=== PATIENT | female | born 1935 | race African-American/Black ===

== ENCOUNTER 2023-06-28 14:49 | Inpatient (IN) | payer MEDICARE, SELFPAY ==
[2023-06-28 15:16] LABS: #Eosinphils 0.2 thou/uL (0.0-0.7); #Monocytes 0.5 thou/uL (0.11-0.59); #Neutrophils 3.1 thou/uL (1.40-6.50); %Basophils 0.7 % (0.0-1.0); %Eosinophils 3.4 % (0.0-10.0); %Lymphocytes 30.9 % (21.0-51.0); %Monocytes 9.5 % (0.0-10.0); %Neutrophils 55.1 % (42.0-75.0); Hematocrit 33.7 % (36.0-47.0); Hemoglobin 10.9 g/dL (12.0-16.0); Mean Corpuscular HGB CONC 32.3 g/dL (32.0-36.0); Mean Corpuscular Hemoglobin 33.7 pg (27.0-31.0); Mean Corpuscular Volume 104.3 fl (78.0-98.0); Mean Platelet Volume 9.9 fL (7.4-10.4); Platelet Count 143 10x3/uL (130-400); RBC Distribution Width 11.9 % (11.5-14.5); Red Blood Cell (RBC) Count 3.23 mill/uL (4.20-5.40); White Blood Cell (WBC) Count 5.6 10x3/uL (4.8-10.8)
[2023-06-28] MEDS ORDERED: Rocuronium Bromide 10 MG/ML (10ML VIAL) ONE (15:16)
[2023-06-28] MEDS ORDERED: Tenecteplase 50 MG ONE (15:16)
[2023-06-28 15:36] LABS: ALT (SGPT) Less than 7 U/L (8-55); AST (SGOT) 12 U/L (5-34); Albumin 3.7 g/dL (3.4-4.8); Alkaline Phosphatase 44 U/L (40-110); Anion Gap 14 mmol/L (10-20); BUN (Urea Nitrogen) 14 mg/dL (9.8-20.1); Bilirubin, Total 0.3 mg/dL (0.2-1.2); Calc. Creatinine Clearance 0 mL/min (70-130); Carbon Dioxide 21 mmol/L (23-31); Chloride 107 mmol/L (98-107); Estimated GFR 77; Globulin 1.8 g/dL (2.4-3.5); Glucose 182 mg/dL (83-110); Potassium 3.9 mmol/L (3.5-5.1); Protein, Total 5.5 g/dL (5.8-8.1); Sodium 138 mmol/L (136-145)
[2023-06-28 15:40] LABS: Troponin I 0.019 ng/mL (< 0.028)
[2023-06-28 15:41] LABS: INR-International Normal Ratio 1.1; PTT 30.9 sec (22.9-36.1); Prothrombin Time 14.2 sec (12.0-14.7)
[2023-06-28] MEDS ORDERED: Heparin 10,000 UNITS/ 10 ML VIAL ONE (15:44)
[2023-06-28] MEDS ORDERED: Lidocaine 1% (PF) 30 ML VIAL ONE (15:44)
[2023-06-28] MEDS ORDERED: Propofol 1,000 MG/100 ML VIAL IV ONE (15:47)
[2023-06-28] MEDS ORDERED: fentaNYL PF 100 MCG/2 ML SYRINGE ONE (15:48)
[2023-06-28] MEDS ORDERED: Phenylephrine 10 MG/ML VIAL ONE (15:48)
[2023-06-28] MEDS ORDERED: Ketamine 50 MG/ML (10ML VIAL) ONE (15:48)
[2023-06-28] MEDS ORDERED: Iopamidol-370 76% 500 ML MDV (1 ML CHARGE) ONE (15:57)
[2023-06-28 16:04] LABS: Actual Bicarbonate (HCO3a) 21.3 mEq/L (22-28); Analyzer IN Cardio ER; Base Excess (BEa) -0.6 mEq/L (-2.0 to +3.0); CO2 Tension 27.6 mmHg (35.0-45.0); Calcium, Ionized (arterial) 1.16 mmol/L (1.12-1.30); Carboxyhemoglobin (COHb) 0.1 gm% (0.0-3.0); Hematocrit-ABG 37 % (36.0-47.0); Hemoglobin (Hb) 12.6 g/dL (12.0-16.0); O2 Tension (PaO2), arterial 506.7 mmHg (> 60.0); pH, Arterial 7.506 (7.35-7.45)
[2023-06-28 16:07] LABS: Puncture Site Right Radial
[2023-06-28] MEDS ORDERED: PROPOFOL 200 MG/20 ML VIAL ONE (16:19)
[2023-06-28] MEDS ORDERED: Esmolol 100 MG/10 ML VIAL ONE (16:19)
[2023-06-28] MEDS ORDERED: niCARdipine 25 MG in Sodium Chloride 0.9% 250 ML 250 ML IVPB PRN (17:05)
[2023-06-28] MEDS ORDERED: hydrALAZINE 20 MG/ML VIAL SLOW IVP PRN (17:05)
[2023-06-28] MEDS ORDERED: Communication Order-Pharmacy FS SCH (17:05)
[2023-06-28] MEDS ORDERED: Mag-Al 1200 mg/1200 mg/30 ML UDCUP PO PRN (17:05)
[2023-06-28] MEDS ORDERED: Lorazepam 2 MG/ML VIAL SLOW IVP PRN (18:30)
[2023-06-28] MEDS ORDERED: Fentanyl BOLUS 250 ML IVPB PRN (18:30)
[2023-06-28] MEDS ORDERED: Fentanyl CADD 100 ML IV SCH (18:30)
[2023-06-28] MEDS ORDERED: Propofol BOLUS 1,000 MG/100 ML VIAL IV PRN (18:30)
[2023-06-28] MEDS ORDERED: DISCONTINUE PREVIOUS NARCOTIC PAIN MEDICATIONS AND BENZODIAZEPINES FS SCH (18:30)
[2023-06-28] MEDS ORDERED: Electrolyte Replacement Protocol 1 EACH FS SCH (20:15)
[2023-06-28] MEDS ORDERED: Dextrose 50% Abboject 50 ML SYRINGE SLOW IVP PRN (20:27)
[2023-06-28] MEDS ORDERED: Glucagon 1 MG/ML KIT IM PRN (20:27)
[2023-06-28] MEDS ORDERED: Dextrose 5% in Water 1,000 ML IV PRN (20:27)
[2023-06-28] MEDS: Atorvastatin Calcium 40 MG TAB PO SCH ×2 (21:46→21:50)
[2023-06-28] MEDS: Sodium Chloride 0.9% 1,000 ML IV SCH (21:47)
[2023-06-28] MEDS ORDERED: Cyanocobalamin 1000 MCG/ML VIAL IM SCH (23:45)
[2023-06-29] MEDS: Morphine 2 MG/ML VIAL SLOW IVP PRN (01:52)
[2023-06-29] MEDS: Labetalol HCl 100 MG/20 ML VIAL SLOW IVP PRN ×2 (01:54→06:00)
[2023-06-29] MEDS: Propofol 1,000 MG/100 ML VIAL IV PRN ×2 (01:54→06:00)
[2023-06-29 05:00] LABS: #Eosinphils 0.1 thou/uL (0.0-0.7); #Monocytes 0.6 thou/uL (0.11-0.59); #Neutrophils 6.6 thou/uL (1.40-6.50); %Basophils 0.4 % (0.0-1.0); %Lymphocytes 12.8 % (21.0-51.0); %Monocytes 7.6 % (0.0-10.0); %Neutrophils 77.8 % (42.0-75.0); Hematocrit 36.4 % (36.0-47.0); Hemoglobin 12.4 g/dL (12.0-16.0); Mean Corpuscular HGB CONC 34.1 g/dL (32.0-36.0); Mean Corpuscular Hemoglobin 33.7 pg (27.0-31.0); Mean Platelet Volume 9.6 fL (7.4-10.4); Platelet Count 153 10x3/uL (130-400); RBC Distribution Width 11.6 % (11.5-14.5); Red Blood Cell (RBC) Count 3.68 mill/uL (4.20-5.40); White Blood Cell (WBC) Count 8.4 10x3/uL (4.8-10.8)
[2023-06-29 05:02] LABS: Mean Corpuscular Volume 98.9 fl (78.0-98.0)
[2023-06-29 05:27] LABS: Anion Gap 14 mmol/L (10-20); BUN (Urea Nitrogen) 10 mg/dL (9.8-20.1); Calc. Creatinine Clearance 70 mL/min (70-130); Carbon Dioxide 19 mmol/L (23-31); Cardiac Risk 2.6 (Less than 4.5); Chloride 110 mmol/L (98-107); Cholesterol 102 mg/dl (< 200 Desired); Estimated GFR 84; Glucose 169 mg/dL (83-110); HDL Cholesterol 40 mg/dL (>60 Neg Risk); LDL Cholesterol, Calculated 42 mg/dL; Magnesium 1.3 mg/dL (1.6-2.6); Potassium 3.2 mmol/L (3.5-5.1); Sodium 140 mmol/L (136-145); Triglycerides 101 mg/dL (Less than 150)
[2023-06-29] MEDS: Sodium Chloride 0.9% 1,000 ML IV SCH ×2 (05:59→09:00)
[2023-06-29] MEDS ORDERED: Magnesium Sulfate In Water 4 GM in Premix Bag 1 BAG IVPB SCH (06:30)
[2023-06-29 07:28] LABS: Actual Bicarbonate (HCO3a) 19.6 mEq/L (22-28); Base Excess (BEa) -2.2 mEq/L (-2.0 to +3.0); CO2 Tension 25.9 mmHg (35.0-45.0); Calcium, Ionized (arterial) 1.12 mmol/L (1.12-1.30); Carboxyhemoglobin (COHb) 0.2 gm% (0.0-3.0); Hematocrit-ABG 38 % (36.0-47.0); Hemoglobin (Hb) 12.9 g/dL (12.0-16.0); O2 Tension (PaO2), arterial 172.9 mmHg (> 60.0); Potassium - ABG Lab 3.05 mmol/L (3.70-5.30); pH, Arterial 7.496 (7.35-7.45)
[2023-06-29 07:29] LABS: ALV-art Gradient 79.925 mmHg (0-20); Puncture Site Arterial Line
[2023-06-29] MEDS ORDERED: NOREPINEPHRINE 8 MG/250 ML-D5W 250 ML ONE (07:56)
[2023-06-29] MEDS ORDERED: Folic Acid 5 MG/ML MDV SC SCH (09:00)
[2023-06-29] MEDS: Potassium Chloride 20 MEQ in Premix Bag 1 BAG IVPB SCH ×2 (10:25→12:21)
[2023-06-29] MEDS ORDERED: Iopamidol 370 76% 100 ML VIAL ONE (10:39)
[2023-06-29] MEDS ORDERED: Dexmedetomidine 400 MCG, Admixture Fee 1 EACH in Sodium Chloride 0.9% 96 ML IVPB SCH (11:00)
[2023-06-29] MEDS ORDERED: Famotidine/PF 20 mg/2ml Vial SLOW IVP SCH (11:00)
[2023-06-29] MEDS ORDERED: NOREPINEPHRINE 8 MG/250 ML-D5W 250 ML IVPB SCH (11:00)
[2023-06-29 11:07] LABS: Phosphorus 2.9 mg/dL (2.3-4.7)
[2023-06-29] MEDS: Famotidine/PF 20 mg/2ml Vial SLOW IVP SCH ×3 (12:14→20:50)
[2023-06-29] MEDS: Scopolamine 1.5 mg/72 hour Patch TD SCH (12:14)
[2023-06-29] MEDS: Folic Acid 0.4 MG in Syringe 0 ML SC SCH ×3 (12:24→20:51)
[2023-06-29 16:46] LABS: Potassium 3.7 mmol/L (3.5-5.1)
[2023-06-29] MEDS: Atorvastatin Calcium 40 MG TAB PO SCH (20:50)
[2023-06-29] MEDS: HumaLOG 300 UNITS/3 ML VIAL SC PRN (23:05)
[2023-06-30] MEDS ORDERED: Sodium Chloride 0.9% 500 ML IV SCH (02:30)
[2023-06-30] MEDS: Sodium Chloride 0.9% 1,000 ML IV SCH ×3 (03:53→16:34)
[2023-06-30 05:18] LABS: Hematocrit 38.1 % (36.0-47.0); Hemoglobin 12.1 g/dL (12.0-16.0); Mean Corpuscular HGB CONC 31.8 g/dL (32.0-36.0); Mean Corpuscular Hemoglobin 33.3 pg (27.0-31.0); Mean Platelet Volume 10.3 fL (7.4-10.4); Platelet Count 145 10x3/uL (130-400); RBC Distribution Width 12.3 % (11.5-14.5); Red Blood Cell (RBC) Count 3.63 mill/uL (4.20-5.40); White Blood Cell (WBC) Count 12.4 10x3/uL (4.8-10.8)
[2023-06-30 05:41] LABS: ALT (SGPT) 7 U/L (8-55); AST (SGOT) 14 U/L (5-34); Albumin 3.4 g/dL (3.4-4.8); Alkaline Phosphatase 48 U/L (40-110); Anion Gap 15 mmol/L (10-20); BUN (Urea Nitrogen) 10 mg/dL (9.8-20.1); Bilirubin, Total 0.6 mg/dL (0.2-1.2); Calc. Creatinine Clearance 63 mL/min (70-130); Calcium 8.7 mg/dL (7.8-10.44); Carbon Dioxide 19 mmol/L (23-31); Chloride 109 mmol/L (98-107); Estimated GFR 79; Globulin 2.6 g/dL (2.4-3.5); Glucose 221 mg/dL (83-110); Magnesium 2.1 mg/dL (1.6-2.6); Potassium 4.4 mmol/L (3.5-5.1); Sodium 139 mmol/L (136-145)
[2023-06-30] MEDS: HumaLOG 300 UNITS/3 ML VIAL SC PRN ×4 (06:37→21:38)
[2023-06-30] MEDS: Famotidine/PF 20 mg/2ml Vial SLOW IVP SCH ×2 (08:37→21:32)
[2023-06-30] MEDS ORDERED: Aspirin 300 MG Suppository PR SCH (09:00)
[2023-06-30] MEDS ORDERED: Aspirin 325 mg Enteric Coated Tablet PO SCH (09:00)
[2023-06-30] MEDS ORDERED: Dextrose 5% in Water 1,000 ML IV SCH (09:15)
[2023-06-30] MEDS ORDERED: Sodium Bicarbonate 150 MEQ in Dextrose 5% in Water 1,000 ML IV SCH (09:30)
[2023-06-30] MEDS: Insulin Glargine 30 UNITS/0.3 ML VIAL SC SCH (09:59)
[2023-06-30] MEDS: Acetaminophen 325 MG TAB PO PRN (13:58)
[2023-06-30] MEDS: Amiodarone 450 MG in Dextrose 5% in Water 250 ML IVPB SCH ×2 (15:20→23:21)
[2023-06-30] MEDS ORDERED: Latanoprost 0.005% Ophth Soln 2.5 ml Bottle EA EYE SCH (21:00)
[2023-06-30] MEDS ORDERED: DorzolamidE/Timolol 2%/0.5% Ophth Soln 10 ml Bottle EA EYE SCH (21:00)
[2023-06-30] MEDS: levETIRAcetam 500 MG/5 ML VIAL SLOW IVP SCH (21:32)
[2023-06-30] MEDS: Folic Acid 0.4 MG in Syringe 0 ML SC SCH (21:33)
[2023-06-30] MEDS: Latanoprost 0.005% Ophth Soln 2.5 ml Bottle EA EYE SCH (21:34)
[2023-06-30] MEDS: DorzolamidE/Timolol 2%/0.5% Ophth Soln 10 ml Bottle EA EYE SCH (21:34)
[2023-06-30] MEDS: Atorvastatin Calcium 40 MG TAB PO SCH (21:34)
[2023-07-01 04:04] LABS: Hematocrit 37.7 % (36.0-47.0); Hemoglobin 12.2 g/dL (12.0-16.0); Mean Corpuscular HGB CONC 32.4 g/dL (32.0-36.0); Mean Corpuscular Hemoglobin 32.9 pg (27.0-31.0); Mean Platelet Volume 11.2 fL (7.4-10.4); RBC Distribution Width 12.3 % (11.5-14.5); Red Blood Cell (RBC) Count 3.71 mill/uL (4.20-5.40); White Blood Cell (WBC) Count 12.8 10x3/uL (4.8-10.8)
[2023-07-01 04:21] LABS: Mean Corpuscular Volume 101.6 fl (78.0-98.0); Platelet Count 121 10x3/uL (130-400)
[2023-07-01 04:26] LABS: Anion Gap 15 mmol/L (10-20); BUN (Urea Nitrogen) 12 mg/dL (9.8-20.1); Calc. Creatinine Clearance 68 mL/min (70-130); Calcium 8.5 mg/dL (7.8-10.44); Carbon Dioxide 21 mmol/L (23-31); Chloride 107 mmol/L (98-107); Estimated GFR 84; Glucose 220 mg/dL (83-110); Potassium 3.5 mmol/L (3.5-5.1); Sodium 139 mmol/L (136-145)
[2023-07-01] MEDS: Sodium Chloride 0.9% 1,000 ML IV SCH ×2 (05:34→20:09)
[2023-07-01] MEDS: HumaLOG 300 UNITS/3 ML VIAL SC PRN ×3 (05:34→17:09)
[2023-07-01] MEDS: Acetaminophen 325 MG TAB PO PRN (08:44)
[2023-07-01] MEDS: Insulin Glargine 30 UNITS/0.3 ML VIAL SC SCH ×2 (08:44→20:08)
[2023-07-01] MEDS: levETIRAcetam 500 MG/5 ML VIAL SLOW IVP SCH ×2 (08:44→20:08)
[2023-07-01] MEDS: Famotidine/PF 20 mg/2ml Vial SLOW IVP SCH ×2 (08:44→20:08)
[2023-07-01] MEDS: DorzolamidE/Timolol 2%/0.5% Ophth Soln 10 ml Bottle EA EYE SCH ×2 (08:45→20:10)
[2023-07-01] MEDS: Potassium Chloride 20 MEQ in Premix Bag 1 BAG IVPB SCH ×2 (09:21→11:49)
[2023-07-01] MEDS: Amiodarone 450 MG in Dextrose 5% in Water 250 ML IVPB SCH (12:45)
[2023-07-01] MEDS ORDERED: FLU VACC QS2023(65UP)/MF59C/PF 60 MCG/0.5 ML SYRINGE IM ONE (15:00)
[2023-07-01] MEDS: Atorvastatin Calcium 40 MG TAB PO SCH (20:07)
[2023-07-01] MEDS: Morphine 2 MG/ML VIAL SLOW IVP PRN (20:08)
[2023-07-01] MEDS: Latanoprost 0.005% Ophth Soln 2.5 ml Bottle EA EYE SCH (20:10)
[2023-07-01] MEDS ORDERED: Vancomycin 1.5 GRAM/300 ML BAG 1.5 GM in Premix Bag 1 BAG IVPB SCH (20:30)
[2023-07-01] MEDS: Cefepime 1 GM in Sodium Chloride 0.9% 100 ML IVPB SCH (20:48)
[2023-07-01] MEDS: Folic Acid 0.4 MG in Syringe 0 ML SC SCH (20:50)
[2023-07-01] MEDS ORDERED: Vancomycin 1 GM in Premix Bag 1 BAG IVPB SCH (21:00)
[2023-07-02] MEDS: Morphine 2 MG/ML VIAL SLOW IVP PRN ×2 (00:09→03:39)
[2023-07-02] MEDS: Amiodarone 450 MG in Dextrose 5% in Water 250 ML IVPB SCH ×2 (03:31→18:53)
[2023-07-02 06:32] LABS: Lactic Acid 3.1 mmol/L (0.5-2.2)
[2023-07-02 06:43] LABS: BUN (Urea Nitrogen) 13 mg/dL (9.8-20.1); Calc. Creatinine Clearance 75 mL/min (70-130); Carbon Dioxide 17 mmol/L (23-31); Chloride 109 mmol/L (98-107); Estimated GFR 85; Glucose 159 mg/dL (83-110); Potassium 4.3 mmol/L (3.5-5.1); Sodium 139 mmol/L (136-145)
[2023-07-02] MEDS: HumaLOG 300 UNITS/3 ML VIAL SC PRN ×4 (06:44→21:10)
[2023-07-02 07:17] LABS: Anion Gap 17 mmol/L (10-20)
[2023-07-02] MEDS: Acetaminophen 650 MG/20.3 ML UDCUP PER TUBE PRN ×2 (08:04→20:55)
[2023-07-02] MEDS: DorzolamidE/Timolol 2%/0.5% Ophth Soln 10 ml Bottle EA EYE SCH ×2 (08:14→21:13)
[2023-07-02] MEDS: levETIRAcetam 500 MG/5 ML VIAL SLOW IVP SCH ×2 (08:15→21:15)
[2023-07-02] MEDS: Famotidine/PF 20 mg/2ml Vial SLOW IVP SCH ×2 (08:18→21:15)
[2023-07-02] MEDS: Cefepime 1 GM in Sodium Chloride 0.9% 100 ML IVPB SCH ×2 (08:20→21:20)
[2023-07-02 08:33] LABS: Hematocrit 40.2 % (36.0-47.0); Hemoglobin 12.9 g/dL (12.0-16.0); Mean Corpuscular HGB CONC 32.1 g/dL (32.0-36.0); Mean Corpuscular Hemoglobin 32.8 pg (27.0-31.0); Mean Corpuscular Volume 102.3 fl (78.0-98.0); Mean Platelet Volume 11.8 fL (7.4-10.4); Platelet Count 98 10x3/uL (130-400); RBC Distribution Width 12.1 % (11.5-14.5); Red Blood Cell (RBC) Count 3.93 mill/uL (4.20-5.40); White Blood Cell (WBC) Count 6.5 10x3/uL (4.8-10.8)
[2023-07-02] MEDS: Sodium Chloride 0.9% 1,000 ML IV SCH (08:54)
[2023-07-02] MEDS: Insulin Glargine 30 UNITS/0.3 ML VIAL SC SCH (08:55)
[2023-07-02 09:06] LABS: Base Excess (BEa) -0.2 mEq/L (-2.0 to +3.0); Calcium, Ionized (arterial) 1.17 mmol/L (1.12-1.30); Carboxyhemoglobin (COHb) 0.6 gm% (0.0-3.0); Hematocrit-ABG 37 % (36.0-47.0); Hemoglobin (Hb) 12.5 g/dL (12.0-16.0); O2 Tension (PaO2), arterial 73.1 mmHg (> 60.0); Potassium - ABG Lab 3.42 mmol/L (3.70-5.30); pH, Arterial 7.461 (7.35-7.45)
[2023-07-02 09:09] LABS: Puncture Site RRA
[2023-07-02] MEDS ORDERED: Sodium Chloride 0.9% 500 ML IV SCH (09:15)
[2023-07-02] MEDS ORDERED: Ipratropium/Albuterol 3 ML NEB NEB PRN (09:25)
[2023-07-02] MEDS ORDERED: Sodium Bicarbonate 150 MEQ in Dextrose 5% in Water 1,000 ML IV SCH (10:00)
[2023-07-02 10:37] LABS: Platelet Count 112 10x3/uL (130-400)
[2023-07-02 10:59] LABS: Fibrinogen 672 mg/dL (253-463)
[2023-07-02 11:00] LABS: INR-International Normal Ratio 1.3; Prothrombin Time 16.6 sec (12.0-14.7)
[2023-07-02] MEDS: Scopolamine 1.5 mg/72 hour Patch TD SCH (11:00)
[2023-07-02] MEDS: Vancomycin HCl 750 MG in Sodium Chloride 0.9% 250 ML 250 ML IVPB SCH ×2 (11:03→22:46)
[2023-07-02 11:07] LABS: D-Dimer Test 9.95 *mcg/mL (0.27-0.43)
[2023-07-02] MEDS: Budesonide 0.5 MG/2 ML NEB NEB SCH (18:32)
[2023-07-02] MEDS: Atorvastatin Calcium 40 MG TAB PO SCH (20:50)
[2023-07-02] MEDS ORDERED: Insulin Glargine 30 UNITS/0.3 ML VIAL SC SCH (21:00)
[2023-07-02] MEDS: Folic Acid 0.4 MG in Syringe 0 ML SC SCH (21:16)
[2023-07-02] MEDS: Latanoprost 0.005% Ophth Soln 2.5 ml Bottle EA EYE SCH (21:18)
[2023-07-03] MEDS ORDERED: Sodium Chloride 0.9% 1,000 ML IV SCH (01:00)
[2023-07-03] MEDS: HumaLOG 300 UNITS/3 ML VIAL SC PRN ×4 (03:33→20:42)
[2023-07-03 05:02] LABS: Hemoglobin 10.7 g/dL (12.0-16.0); Mean Corpuscular HGB CONC 32.4 g/dL (32.0-36.0); Mean Corpuscular Volume 101.9 fl (78.0-98.0); Mean Platelet Volume 11.8 fL (7.4-10.4); Platelet Count 120 10x3/uL (130-400); RBC Distribution Width 12.1 % (11.5-14.5); Red Blood Cell (RBC) Count 3.24 mill/uL (4.20-5.40); White Blood Cell (WBC) Count 9.4 10x3/uL (4.8-10.8)
[2023-07-03 05:27] LABS: ALT (SGPT) 7 U/L (8-55); AST (SGOT) 14 U/L (5-34); Albumin 2.5 g/dL (3.4-4.8); Alkaline Phosphatase 53 U/L (40-110); Anion Gap 12 mmol/L (10-20); BUN (Urea Nitrogen) 22 mg/dL (9.8-20.1); Bilirubin, Total 0.5 mg/dL (0.2-1.2); Calc. Creatinine Clearance 66 mL/min (70-130); Calcium 8.5 mg/dL (7.8-10.44); Carbon Dioxide 25 mmol/L (23-31); Chloride 105 mmol/L (98-107); Estimated GFR 77; Globulin 2.6 g/dL (2.4-3.5); Glucose 274 mg/dL (83-110); Magnesium 1.8 mg/dL (1.6-2.6); Potassium 3.5 mmol/L (3.5-5.1); Protein, Total 5.1 g/dL (5.8-8.1); Sodium 138 mmol/L (136-145)
[2023-07-03 05:29] LABS: Phosphorus 1.5 mg/dL (2.3-4.7)
[2023-07-03 05:42] LABS: Delete Auto Diff?? YES; Manual Diff?? YES
[2023-07-03] MEDS ORDERED: Magnesium 2 GM/50 ML(in water) 2 GM in Premix Bag 1 BAG IVPB SCH (06:15)
[2023-07-03] MEDS ORDERED: Potassium Phosphate 22 MMOL in Sodium Chloride 0.9% 250 ML 250 ML IVPB SCH (06:15)
[2023-07-03] MEDS: Budesonide 0.5 MG/2 ML NEB NEB SCH ×2 (06:46→18:37)
[2023-07-03 07:13] LABS: Anisocytosis SLIGHT = 6-15 cells HPF (0-5); Band 37 % (5-11); CellaVision Operator ID LAB.JMM; Eosinophils 1 % (0-10); Lymphocytes 10 % (21-51); Macrocytosis SLIGHT = 6-15 cells HPF (0-5); Metamyelocyte 2 % (0-0); Monocytes 9 % (0-10); Neutrophil 39 % (42-75); Platelet Adequacy Comment Platelets Decreased; Polychromasia SLIGHT = 2-3 cells HPF (0-2); Reactive Lymphocytes 1 % (0-10); Smudge Cells 7.5 %; Total Cell Count 107
[2023-07-03] MEDS: levETIRAcetam 500 MG/5 ML VIAL SLOW IVP SCH ×2 (08:48→20:39)
[2023-07-03] MEDS: Famotidine/PF 20 mg/2ml Vial SLOW IVP SCH ×2 (08:48→20:39)
[2023-07-03] MEDS: Cefepime 1 GM in Sodium Chloride 0.9% 100 ML IVPB SCH (08:49)
[2023-07-03] MEDS: DorzolamidE/Timolol 2%/0.5% Ophth Soln 10 ml Bottle EA EYE SCH ×2 (08:52→20:46)
[2023-07-03] MEDS ORDERED: Piperacillin/Tazobactam 3.375 GM in Sodium Chloride 0.9% 100 ML IVPB SCH ×2 (11:00→12:00)
[2023-07-03 11:37] LABS: Vancomycin, Trough 10.6 ug/mL
[2023-07-03] MEDS: Amiodarone 450 MG in Dextrose 5% in Water 250 ML IVPB SCH (12:11)
[2023-07-03] MEDS ORDERED: Polyethylene Glycol 3350 17 GM Packet PER TUBE PRN (12:26)
[2023-07-03] MEDS ORDERED: Docusate Sodium 100 MG/10 ML UDCUP PO PRN (12:26)
[2023-07-03] MEDS: Vancomycin 1 GM in Premix Bag 1 BAG IVPB SCH ×2 (12:27→23:43)
[2023-07-03] MEDS: Furosemide 40 MG TAB PO SCH (13:57)
[2023-07-03] MEDS: Piperacillin/Tazobactam 3.375 GM in Sodium Chloride 0.9% 100 ML IVPB SCH ×2 (17:09→23:43)
[2023-07-03] MEDS: Acetaminophen 650 MG/20.3 ML UDCUP PER TUBE PRN (20:35)
[2023-07-03] MEDS: Atorvastatin Calcium 40 MG TAB PO SCH (20:35)
[2023-07-03] MEDS: Folic Acid 0.4 MG in Syringe 0 ML SC SCH (20:44)
[2023-07-03] MEDS: Latanoprost 0.005% Ophth Soln 2.5 ml Bottle EA EYE SCH (20:52)
[2023-07-03] MEDS ORDERED: Insulin Glargine 30 UNITS/0.3 ML VIAL SC SCH (21:00)
[2023-07-04] MEDS: Amiodarone 450 MG in Dextrose 5% in Water 250 ML IVPB SCH (02:46)
[2023-07-04 04:07] LABS: Hematocrit 32.8 % (36.0-47.0); Hemoglobin 10.6 g/dL (12.0-16.0); Mean Corpuscular HGB CONC 32.3 g/dL (32.0-36.0); Mean Corpuscular Hemoglobin 32.1 pg (27.0-31.0); Mean Corpuscular Volume 99.4 fl (78.0-98.0); Mean Platelet Volume 11.2 fL (7.4-10.4); Platelet Count 136 10x3/uL (130-400); RBC Distribution Width 12.2 % (11.5-14.5); White Blood Cell (WBC) Count 10.8 10x3/uL (4.8-10.8)
[2023-07-04 04:31] LABS: Phosphorus 1.6 mg/dL (2.3-4.7)
[2023-07-04 04:37] LABS: ALT (SGPT) 30 U/L (8-55); AST (SGOT) 56 U/L (5-34); Albumin 2.4 g/dL (3.4-4.8); Alkaline Phosphatase 88 U/L (40-110); Anion Gap 11 mmol/L (10-20); BUN (Urea Nitrogen) 20 mg/dL (9.8-20.1); Bilirubin, Total 0.5 mg/dL (0.2-1.2); Calc. Creatinine Clearance 72 mL/min (70-130); Calcium 8.4 mg/dL (7.8-10.44); Carbon Dioxide 27 mmol/L (23-31); Chloride 105 mmol/L (98-107); Estimated GFR 83; Globulin 2.6 g/dL (2.4-3.5); Glucose 227 mg/dL (83-110); Potassium 3.6 mmol/L (3.5-5.1); Sodium 139 mmol/L (136-145)
[2023-07-04 04:40] LABS: Delete Auto Diff?? YES; Manual Diff?? YES
[2023-07-04] MEDS: HumaLOG 300 UNITS/3 ML VIAL SC PRN ×4 (04:43→21:58)
[2023-07-04 04:48] LABS: INR-International Normal Ratio 1.1; PTT 38.4 sec (22.9-36.1); Prothrombin Time 14.8 sec (12.0-14.7)
[2023-07-04 05:09] LABS: Band 19 % (5-11); CellaVision Operator ID lab.abc; Eosinophils 2 % (0-10); Large Platelets 2.9 % (0-5); Lymphocytes 7 % (21-51); Monocytes 10 % (0-10); Neutrophil 63 % (42-75); Nucleated RBC (Manual Ct) 1 % (0); Platelet Adequacy Comment Platelets Normal; RBC Morphology Within Normal Limits; Smudge Cells 2.9 %; Total Cell Count 103
[2023-07-04] MEDS ORDERED: Potassium Phosphate 15 MMOL in Sodium Chloride 0.9% 100 ML IVPB SCH (06:00)
[2023-07-04] MEDS: Budesonide 0.5 MG/2 ML NEB NEB SCH ×2 (07:12→18:10)
[2023-07-04] MEDS ORDERED: Magnesium 2 GM/50 ML(in water) 2 GM in Premix Bag 1 BAG IVPB SCH (08:00)
[2023-07-04] MEDS: Piperacillin/Tazobactam 3.375 GM in Sodium Chloride 0.9% 100 ML IVPB SCH ×3 (08:30→23:30)
[2023-07-04] MEDS: Famotidine/PF 20 mg/2ml Vial SLOW IVP SCH ×2 (08:30→21:54)
[2023-07-04] MEDS: Furosemide 40 MG TAB PO SCH ×2 (08:30→14:15)
[2023-07-04] MEDS: levETIRAcetam 500 MG/5 ML VIAL SLOW IVP SCH ×2 (08:30→21:55)
[2023-07-04] MEDS: DorzolamidE/Timolol 2%/0.5% Ophth Soln 10 ml Bottle EA EYE SCH ×2 (08:30→21:53)
[2023-07-04] MEDS: Vancomycin 1 GM in Premix Bag 1 BAG IVPB SCH (11:35)
[2023-07-04] MEDS: Acetaminophen 650 MG/20.3 ML UDCUP PER TUBE PRN (15:43)
[2023-07-04] MEDS: Latanoprost 0.005% Ophth Soln 2.5 ml Bottle EA EYE SCH (21:45)
[2023-07-04] MEDS: Atorvastatin Calcium 40 MG TAB PO SCH (21:53)
[2023-07-04] MEDS: Folic Acid 0.4 MG in Syringe 0 ML SC SCH (21:56)
[2023-07-04] MEDS: Insulin Glargine 30 UNITS/0.3 ML VIAL SC SCH (21:57)
[2023-07-04 23:42] LABS: Vancomycin, Trough 16.9 ug/mL
[2023-07-05] MEDS: Vancomycin 1 GM in Premix Bag 1 BAG IVPB SCH ×2 (00:10→11:17)
[2023-07-05] MEDS: HumaLOG 300 UNITS/3 ML VIAL SC PRN ×3 (04:00→21:22)
[2023-07-05 04:12] LABS: Hematocrit 32.5 % (36.0-47.0); Hemoglobin 10.7 g/dL (12.0-16.0); Mean Corpuscular HGB CONC 32.9 g/dL (32.0-36.0); Mean Corpuscular Hemoglobin 33.1 pg (27.0-31.0); Mean Corpuscular Volume 100.6 fl (78.0-98.0); Mean Platelet Volume 10.6 fL (7.4-10.4); Platelet Count 173 10x3/uL (130-400); RBC Distribution Width 12.6 % (11.5-14.5); Red Blood Cell (RBC) Count 3.23 mill/uL (4.20-5.40); White Blood Cell (WBC) Count 16.4 10x3/uL (4.8-10.8)
[2023-07-05 04:37] LABS: ALT (SGPT) 32 U/L (8-55); AST (SGOT) 38 U/L (5-34); Albumin 2.5 g/dL (3.4-4.8); Alkaline Phosphatase 98 U/L (40-110); Anion Gap 10 mmol/L (10-20); BUN (Urea Nitrogen) 17 mg/dL (9.8-20.1); Bilirubin, Total 0.4 mg/dL (0.2-1.2); Calc. Creatinine Clearance 78 mL/min (70-130); Calcium 8.5 mg/dL (7.8-10.44); Carbon Dioxide 31 mmol/L (23-31); Chloride 101 mmol/L (98-107); Estimated GFR 85; Globulin 2.6 g/dL (2.4-3.5); Glucose 201 mg/dL (83-110); Magnesium 2.1 mg/dL (1.6-2.6); Potassium 3.4 mmol/L (3.5-5.1); Protein, Total 5.1 g/dL (5.8-8.1); Sodium 139 mmol/L (136-145)
[2023-07-05 04:41] LABS: INR-International Normal Ratio 1.2; Prothrombin Time 15.3 sec (12.0-14.7)
[2023-07-05 04:54] LABS: Phosphorus 1.4 mg/dL (2.3-4.7)
[2023-07-05 05:32] LABS: Delete Auto Diff?? YES; Manual Diff?? YES
[2023-07-05 06:49] LABS: Band 26 % (5-11); CellaVision Operator ID LAB.GE; Eosinophils 2 % (0-10); Large Platelets 0.8 % (0-5); Lymphocytes 3 % (21-51); Metamyelocyte 1 % (0-0); Monocytes 8 % (0-10); Neutrophil 59 % (42-75); Nucleated RBC (Manual Ct) 1 % (0); Platelet Adequacy Comment Platelets Normal; Polychromasia SLIGHT = 2-3 cells HPF (0-2); Reactive Lymphocytes 2 % (0-10); Total Cell Count 120; Toxic Granulation SLIGHT
[2023-07-05] MEDS: Budesonide 0.5 MG/2 ML NEB NEB SCH (07:00)
[2023-07-05] MEDS ORDERED: Potassium Phosphate 22 MMOL in Sodium Chloride 0.9% 250 ML 250 ML IVPB SCH (07:15)
[2023-07-05] MEDS: Docusate Sodium 100 MG/10 ML UDCUP PO SCH (07:56)
[2023-07-05] MEDS: Polyethylene Glycol 3350 17 GM Packet PER TUBE SCH (07:57)
[2023-07-05] MEDS: Piperacillin/Tazobactam 3.375 GM in Sodium Chloride 0.9% 100 ML IVPB SCH ×3 (07:57→23:37)
[2023-07-05] MEDS: DorzolamidE/Timolol 2%/0.5% Ophth Soln 10 ml Bottle EA EYE SCH ×2 (07:58→21:04)
[2023-07-05] MEDS: Famotidine/PF 20 mg/2ml Vial SLOW IVP SCH ×2 (07:58→21:04)
[2023-07-05] MEDS: levETIRAcetam 500 MG/5 ML VIAL SLOW IVP SCH ×2 (07:58→21:03)
[2023-07-05] MEDS: Furosemide 40 MG TAB PO SCH ×2 (07:58→13:39)
[2023-07-05] MEDS: Amiodarone 450 MG in Dextrose 5% in Water 250 ML IVPB SCH (11:24)
[2023-07-05] MEDS ORDERED: Furosemide 100 MG/10 ML VIAL SLOW IVP SCH (18:00)
[2023-07-05] MEDS: Ipratropium/Albuterol 3 ML NEB NEB SCH ×2 (18:32→22:11)
[2023-07-05] MEDS: Insulin Glargine 30 UNITS/0.3 ML VIAL SC SCH (21:03)
[2023-07-05] MEDS: Latanoprost 0.005% Ophth Soln 2.5 ml Bottle EA EYE SCH (21:05)
[2023-07-05] MEDS: Atorvastatin Calcium 40 MG TAB PO SCH (21:05)
[2023-07-05] MEDS: Acetaminophen 650 MG/20.3 ML UDCUP PER TUBE PRN (23:37)
[2023-07-06] MEDS ORDERED: Albumin 25% 25 GM/100 ML BOT IVPB SCH (01:15)
[2023-07-06] MEDS: Amiodarone 450 MG in Dextrose 5% in Water 250 ML IVPB SCH ×2 (01:33→16:24)
[2023-07-06] MEDS ORDERED: Midodrine HCl 5 MG TAB PER TUBE SCH (02:15)
[2023-07-06] MEDS: Ipratropium/Albuterol 3 ML NEB NEB SCH ×6 (02:17→22:04)
[2023-07-06 03:56] LABS: Hematocrit 29.7 % (36.0-47.0); Hemoglobin 9.7 g/dL (12.0-16.0); Mean Corpuscular HGB CONC 32.7 g/dL (32.0-36.0); Mean Corpuscular Hemoglobin 32.8 pg (27.0-31.0); Mean Corpuscular Volume 100.3 fl (78.0-98.0); Mean Platelet Volume 10.5 fL (7.4-10.4); Platelet Count 182 10x3/uL (130-400); RBC Distribution Width 12.9 % (11.5-14.5); Red Blood Cell (RBC) Count 2.96 mill/uL (4.20-5.40); White Blood Cell (WBC) Count 21.3 10x3/uL (4.8-10.8)
[2023-07-06 04:24] LABS: Delete Auto Diff?? YES; Manual Diff?? YES
[2023-07-06] MEDS ORDERED: NOREPINEPHRINE 8 MG/250 ML-D5W 250 ML IVPB SCH (04:30)
[2023-07-06 04:56] LABS: Anion Gap 13 mmol/L (10-20); BUN (Urea Nitrogen) 16 mg/dL (9.8-20.1); Calc. Creatinine Clearance 69 mL/min (70-130); Calcium 8.6 mg/dL (7.8-10.44); Carbon Dioxide 32 mmol/L (23-31); Chloride 96 mmol/L (98-107); Estimated GFR 77; Glucose 341 mg/dL (83-110); Magnesium 1.8 mg/dL (1.6-2.6); Phosphorus 2.6 mg/dL (2.3-4.7); Potassium 3.2 mmol/L (3.5-5.1); Sodium 138 mmol/L (136-145)
[2023-07-06 05:00] LABS: Band 4 % (5-11); CellaVision Operator ID lab.abc; Large Platelets 2.9 % (0-5); Monocytes 6 % (0-10); Neutrophil 90 % (42-75); Platelet Adequacy Comment Platelets Normal; RBC Morphology Within Normal Limits; Smudge Cells 5.9 %; Total Cell Count 102; Toxic Granulation SLIGHT
[2023-07-06] MEDS: Furosemide 100 MG/10 ML VIAL SLOW IVP SCH ×2 (05:18→14:38)
[2023-07-06] MEDS ORDERED: Magnesium 2 GM/50 ML(in water) 2 GM in Premix Bag 1 BAG IVPB SCH (06:30)
[2023-07-06] MEDS: Potassium Chloride 20 MEQ in Premix Bag 1 BAG IVPB SCH ×2 (06:34→09:14)
[2023-07-06] MEDS: HumaLOG 300 UNITS/3 ML VIAL SC PRN ×4 (07:10→20:29)
[2023-07-06] MEDS ORDERED: Insulin Glargine 30 UNITS/0.3 ML VIAL SC SCH (08:25)
[2023-07-06] MEDS: Piperacillin/Tazobactam 3.375 GM in Sodium Chloride 0.9% 100 ML IVPB SCH ×2 (09:13→16:24)
[2023-07-06] MEDS: Famotidine/PF 20 mg/2ml Vial SLOW IVP SCH ×2 (09:14→20:23)
[2023-07-06] MEDS: levETIRAcetam 500 MG/5 ML VIAL SLOW IVP SCH ×2 (09:14→20:21)
[2023-07-06] MEDS: Polyethylene Glycol 3350 17 GM Packet PER TUBE SCH (09:15)
[2023-07-06] MEDS: DorzolamidE/Timolol 2%/0.5% Ophth Soln 10 ml Bottle EA EYE SCH ×2 (09:15→20:24)
[2023-07-06] MEDS: Docusate Sodium 100 MG/10 ML UDCUP PO SCH (09:16)
[2023-07-06] MEDS: Atorvastatin Calcium 40 MG TAB PO SCH (20:20)
[2023-07-06] MEDS: Latanoprost 0.005% Ophth Soln 2.5 ml Bottle EA EYE SCH (20:21)
[2023-07-06] MEDS: Acetaminophen 650 MG/20.3 ML UDCUP PER TUBE PRN (20:21)
[2023-07-07] MEDS: Piperacillin/Tazobactam 3.375 GM in Sodium Chloride 0.9% 100 ML IVPB SCH ×3 (00:35→17:24)
[2023-07-07] MEDS: Ipratropium/Albuterol 3 ML NEB NEB SCH ×6 (01:59→21:49)
[2023-07-07 05:11] LABS: Hematocrit 30.8 % (36.0-47.0); Mean Corpuscular HGB CONC 32.5 g/dL (32.0-36.0); Mean Corpuscular Volume 101.7 fl (78.0-98.0); Mean Platelet Volume 10.4 fL (7.4-10.4); Platelet Count 212 10x3/uL (130-400); RBC Distribution Width 13.2 % (11.5-14.5); Red Blood Cell (RBC) Count 3.03 mill/uL (4.20-5.40)
[2023-07-07 05:17] LABS: Delete Auto Diff?? YES; Manual Diff?? YES
[2023-07-07] MEDS: Furosemide 100 MG/10 ML VIAL SLOW IVP SCH (05:17)
[2023-07-07 05:40] LABS: Anion Gap 12 mmol/L (10-20); BUN (Urea Nitrogen) 22 mg/dL (9.8-20.1); Calc. Creatinine Clearance 65 mL/min (70-130); Calcium 8.9 mg/dL (7.8-10.44); Carbon Dioxide 34 mmol/L (23-31); Chloride 94 mmol/L (98-107); Estimated GFR 74; Glucose 368 mg/dL (83-110); Magnesium 2.3 mg/dL (1.6-2.6); Phosphorus 2.4 mg/dL (2.3-4.7); Sodium 137 mmol/L (136-145)
[2023-07-07 05:51] LABS: Band 7 % (5-11); CellaVision Operator ID LAB.CLH1; Elliptocytes SLIGHT = 2-5 cells HPF (0-1); Hypochromia SLIGHT = 6-15 cells HPF (0-5); Lymphocytes 1 % (21-51); Macrocytosis SLIGHT = 6-15 cells HPF (0-5); Metamyelocyte 1 % (0-0); Monocytes 2 % (0-10); Neutrophil 88 % (42-75); Platelet Adequacy Comment Platelets Normal; Polychromasia SLIGHT = 2-3 cells HPF (0-2); Total Cell Count 100
[2023-07-07] MEDS: HumaLOG 300 UNITS/3 ML VIAL SC PRN ×4 (05:59→21:31)
[2023-07-07] MEDS ORDERED: Potassium Chloride 20 MEQ TAB PO SCH ×3 (08:00→15:45)
[2023-07-07] MEDS: Potassium Chloride 20 MEQ TAB PO SCH (09:05)
[2023-07-07] MEDS: Famotidine/PF 20 mg/2ml Vial SLOW IVP SCH ×2 (09:33→20:42)
[2023-07-07] MEDS: levETIRAcetam 500 MG/5 ML VIAL SLOW IVP SCH ×2 (09:34→20:42)
[2023-07-07] MEDS: Amiodarone 450 MG in Dextrose 5% in Water 250 ML IVPB SCH ×2 (09:40→20:27)
[2023-07-07] MEDS: DorzolamidE/Timolol 2%/0.5% Ophth Soln 10 ml Bottle EA EYE SCH ×2 (10:40→20:31)
[2023-07-07] MEDS: Docusate Sodium 100 MG/10 ML UDCUP PO SCH (10:40)
[2023-07-07] MEDS: Polyethylene Glycol 3350 17 GM Packet PER TUBE SCH (10:41)
[2023-07-07 13:14] LABS: Potassium 2.6 mmol/L (3.5-5.1)
[2023-07-07] MEDS: Potassium Chloride 20 MEQ in Premix Bag 1 BAG IVPB SCH ×8 (13:41→20:40)
[2023-07-07] MEDS ORDERED: Furosemide 40 MG/4 ML VIAL SLOW IVP SCH (14:00)
[2023-07-07] MEDS: Scopolamine 1.5 mg/72 hour Patch TD SCH (14:38)
[2023-07-07] MEDS: Latanoprost 0.005% Ophth Soln 2.5 ml Bottle EA EYE SCH (20:41)
[2023-07-07] MEDS: Atorvastatin Calcium 40 MG TAB PO SCH (20:42)
[2023-07-07] MEDS ORDERED: Insulin Glargine 30 UNITS/0.3 ML VIAL SC SCH (21:00)
[2023-07-08 00:38] LABS: #Eosinphils 0.1 thou/uL (0.0-0.7); %Basophils 0.2 % (0.0-1.0); %Eosinophils 0.2 % (0.0-10.0); %Lymphocytes 3.7 % (21.0-51.0); %Monocytes 4.9 % (0.0-10.0); %Neutrophils 89.8 % (42.0-75.0); Hematocrit 29.8 % (36.0-47.0); Hemoglobin 9.6 g/dL (12.0-16.0); Mean Corpuscular HGB CONC 32.2 g/dL (32.0-36.0); Mean Corpuscular Hemoglobin 32.9 pg (27.0-31.0); Mean Corpuscular Volume 102.1 fl (78.0-98.0); Mean Platelet Volume 10.1 fL (7.4-10.4); Platelet Count 230 10x3/uL (130-400); RBC Distribution Width 13.2 % (11.5-14.5); Red Blood Cell (RBC) Count 2.92 mill/uL (4.20-5.40); White Blood Cell (WBC) Count 21.2 10x3/uL (4.8-10.8)
[2023-07-08] MEDS: Piperacillin/Tazobactam 3.375 GM in Sodium Chloride 0.9% 100 ML IVPB SCH ×4 (01:01→23:05)
[2023-07-08 01:16] LABS: Anion Gap 13 mmol/L (10-20); BUN (Urea Nitrogen) 25 mg/dL (9.8-20.1); Calc. Creatinine Clearance 69 mL/min (70-130); Calcium 9.1 mg/dL (7.8-10.44); Carbon Dioxide 34 mmol/L (23-31); Chloride 98 mmol/L (98-107); Estimated GFR 80; Glucose 267 mg/dL (83-110); Magnesium 1.9 mg/dL (1.6-2.6); Phosphorus 1.9 mg/dL (2.3-4.7); Potassium 5.5 mmol/L (3.5-5.1); Sodium 139 mmol/L (136-145)
[2023-07-08] MEDS: Ipratropium/Albuterol 3 ML NEB NEB SCH ×3 (02:07→10:37)
[2023-07-08] MEDS: Furosemide 40 MG/4 ML VIAL SLOW IVP SCH (05:54)
[2023-07-08] MEDS: HumaLOG 300 UNITS/3 ML VIAL SC PRN ×3 (05:58→18:43)
[2023-07-08] MEDS: Famotidine/PF 20 mg/2ml Vial SLOW IVP SCH ×2 (08:00→22:23)
[2023-07-08] MEDS ORDERED: Magnesium 2 GM/50 ML(in water) 2 GM in Premix Bag 1 BAG IVPB SCH (08:00)
[2023-07-08] MEDS: Potassium Chloride 20 MEQ TAB PO SCH (08:01)
[2023-07-08] MEDS: Docusate Sodium 100 MG/10 ML UDCUP PO SCH (08:01)
[2023-07-08] MEDS: levETIRAcetam 500 MG/5 ML VIAL SLOW IVP SCH ×2 (08:01→20:44)
[2023-07-08] MEDS: DorzolamidE/Timolol 2%/0.5% Ophth Soln 10 ml Bottle EA EYE SCH ×2 (08:01→22:42)
[2023-07-08] MEDS: Polyethylene Glycol 3350 17 GM Packet PER TUBE SCH (08:02)
[2023-07-08] MEDS: Amiodarone 200 MG TAB PO SCH ×2 (09:16→20:44)
[2023-07-08] MEDS ORDERED: Ipratropium/Albuterol 3 ML NEB NEB PRN (11:05)
[2023-07-08] MEDS: Insulin Glargine 30 UNITS/0.3 ML VIAL SC SCH (22:23)
[2023-07-08] MEDS: Atorvastatin Calcium 40 MG TAB PO SCH (22:23)
[2023-07-08] MEDS: Latanoprost 0.005% Ophth Soln 2.5 ml Bottle EA EYE SCH (22:42)
[2023-07-08] MEDS ORDERED: Metoprolol Tartrate 5 MG/5 ML VIAL IVP SCH (22:45)
[2023-07-09] MEDS: Acetaminophen 650 MG/20.3 ML UDCUP PER TUBE PRN ×2 (00:21→16:35)
[2023-07-09] MEDS: Furosemide 40 MG/4 ML VIAL SLOW IVP SCH (05:22)
[2023-07-09] MEDS: HumaLOG 300 UNITS/3 ML VIAL SC PRN ×3 (05:39→14:12)
[2023-07-09 05:48] LABS: Anion Gap 13 mmol/L (10-20); BUN (Urea Nitrogen) 36 mg/dL (9.8-20.1); Calc. Creatinine Clearance 61 mL/min (70-130); Calcium 9.6 mg/dL (7.8-10.44); Carbon Dioxide 36 mmol/L (23-31); Chloride 97 mmol/L (98-107); Estimated GFR 73; Glucose 264 mg/dL (83-110); Magnesium 2.3 mg/dL (1.6-2.6); Sodium 143 mmol/L (136-145)
[2023-07-09 05:52] LABS: Phosphorus 3.4 mg/dL (2.3-4.7)
[2023-07-09] MEDS ORDERED: Metoprolol Tartrate 5 MG/5 ML VIAL IVP SCH (08:30)
[2023-07-09] MEDS: Potassium Chloride 20 MEQ in Premix Bag 1 BAG IVPB SCH ×2 (08:51→11:49)
[2023-07-09] MEDS: LevoFLOXacin 750 mg/D5W 750 MG in Premix Bag 1 BAG IVPB SCH (08:52)
[2023-07-09] MEDS: Famotidine/PF 20 mg/2ml Vial SLOW IVP SCH ×2 (08:53→21:07)
[2023-07-09] MEDS: Polyethylene Glycol 3350 17 GM Packet PER TUBE SCH (08:53)
[2023-07-09] MEDS: Potassium Chloride 20 MEQ TAB PO SCH (08:53)
[2023-07-09] MEDS: Docusate Sodium 100 MG/10 ML UDCUP PO SCH (08:53)
[2023-07-09] MEDS: levETIRAcetam 500 MG/5 ML VIAL SLOW IVP SCH ×2 (08:53→21:09)
[2023-07-09] MEDS: Amiodarone 200 MG TAB PO SCH ×2 (08:54→21:07)
[2023-07-09] MEDS: DorzolamidE/Timolol 2%/0.5% Ophth Soln 10 ml Bottle EA EYE SCH ×2 (08:58→21:07)
[2023-07-09] MEDS: Piperacillin/Tazobactam 3.375 GM in Sodium Chloride 0.9% 100 ML IVPB SCH (13:35)
[2023-07-09] MEDS: HumaLOG 300 UNITS/3 ML VIAL SC SCH ×2 (14:12→18:38)
[2023-07-09] MEDS: Latanoprost 0.005% Ophth Soln 2.5 ml Bottle EA EYE SCH (21:05)
[2023-07-09] MEDS: Atorvastatin Calcium 40 MG TAB PO SCH (21:07)
[2023-07-09] MEDS: Insulin Glargine 30 UNITS/0.3 ML VIAL SC SCH (21:08)
[2023-07-10 05:14] LABS: Anion Gap 13 mmol/L (10-20); BUN (Urea Nitrogen) 40 mg/dL (9.8-20.1); Calc. Creatinine Clearance 66 mL/min (70-130); Calcium 9.6 mg/dL (7.8-10.44); Carbon Dioxide 36 mmol/L (23-31); Chloride 100 mmol/L (98-107); Estimated GFR 80; Glucose 227 mg/dL (83-110); Potassium 3.4 mmol/L (3.5-5.1); Sodium 146 mmol/L (136-145)
[2023-07-10] MEDS: Furosemide 40 MG/4 ML VIAL SLOW IVP SCH (05:44)
[2023-07-10] MEDS ORDERED: Potassium Chloride 20 MEQ TAB PER TUBE SCH (08:30)
[2023-07-10] MEDS ORDERED: Potassium Chloride 20 MEQ TAB PO SCH (10:00)
[2023-07-10] MEDS: Metoprolol Tartrate 25 MG TAB PO SCH ×2 (10:05→21:29)
[2023-07-10] MEDS: Potassium Chloride 20 MEQ TAB PO SCH (10:05)
[2023-07-10] MEDS: Famotidine/PF 20 mg/2ml Vial SLOW IVP SCH ×2 (10:06→21:29)
[2023-07-10] MEDS: HumaLOG 300 UNITS/3 ML VIAL SC SCH ×3 (10:06→18:17)
[2023-07-10] MEDS: Docusate Sodium 100 MG/10 ML UDCUP PO SCH (10:06)
[2023-07-10] MEDS: levETIRAcetam 500 MG/5 ML VIAL SLOW IVP SCH ×2 (10:07→21:29)
[2023-07-10] MEDS: HumaLOG 300 UNITS/3 ML VIAL SC PRN (10:07)
[2023-07-10] MEDS: Amiodarone 200 MG TAB PO SCH ×2 (10:08→21:29)
[2023-07-10] MEDS: DorzolamidE/Timolol 2%/0.5% Ophth Soln 10 ml Bottle EA EYE SCH ×2 (10:08→21:29)
[2023-07-10] MEDS: LevoFLOXacin 750 mg/D5W 750 MG in Premix Bag 1 BAG IVPB SCH (10:09)
[2023-07-10] MEDS: Polyethylene Glycol 3350 17 GM Packet PER TUBE SCH (10:09)
[2023-07-10] MEDS ORDERED: Pancrelipase DR 12,000 1 CAP PER TUBE SCH (12:15)
[2023-07-10] MEDS ORDERED: Sodium Bicarbonate Tab 325 MG TAB PER TUBE SCH (12:15)
[2023-07-10] MEDS: Scopolamine 1.5 mg/72 hour Patch TD SCH (14:32)
[2023-07-10] MEDS: Atorvastatin Calcium 40 MG TAB PO SCH (21:29)
[2023-07-10] MEDS: Latanoprost 0.005% Ophth Soln 2.5 ml Bottle EA EYE SCH (21:29)
[2023-07-10] MEDS: Insulin Glargine 30 UNITS/0.3 ML VIAL SC SCH (22:59)
[2023-07-11] MEDS: Furosemide 40 MG/4 ML VIAL SLOW IVP SCH (05:50)
[2023-07-11] MEDS: LevoFLOXacin 750 mg/D5W 750 MG in Premix Bag 1 BAG IVPB SCH (09:11)
[2023-07-11] MEDS: levETIRAcetam 500 MG/5 ML VIAL SLOW IVP SCH ×2 (09:12→22:14)
[2023-07-11] MEDS: HumaLOG 300 UNITS/3 ML VIAL SC SCH ×3 (09:15→18:45)
[2023-07-11] MEDS: Famotidine/PF 20 mg/2ml Vial SLOW IVP SCH ×2 (09:15→22:14)
[2023-07-11] MEDS: Metoprolol Tartrate 25 MG TAB PO SCH ×2 (09:19→22:13)
[2023-07-11] MEDS: Docusate Sodium 100 MG/10 ML UDCUP PO SCH (09:19)
[2023-07-11] MEDS: Potassium Chloride 20 MEQ TAB PO SCH (09:19)
[2023-07-11] MEDS: Amiodarone 200 MG TAB PO SCH ×2 (09:19→22:13)
[2023-07-11] MEDS: DorzolamidE/Timolol 2%/0.5% Ophth Soln 10 ml Bottle EA EYE SCH ×2 (09:29→22:36)
[2023-07-11] MEDS: Polyethylene Glycol 3350 17 GM Packet PER TUBE SCH (09:29)
[2023-07-11 10:24] LABS: Anion Gap 15 mmol/L (10-20); BUN (Urea Nitrogen) 47 mg/dL (9.8-20.1); Calc. Creatinine Clearance 61 mL/min (70-130); Calcium 9.7 mg/dL (7.8-10.44); Carbon Dioxide 36 mmol/L (23-31); Chloride 102 mmol/L (98-107); Estimated GFR 70; Glucose 224 mg/dL (83-110); Magnesium 2.2 mg/dL (1.6-2.6); Potassium 3.5 mmol/L (3.5-5.1); Sodium 149 mmol/L (136-145)
[2023-07-11] MEDS ORDERED: Potassium Chloride 20 MEQ TAB PO SCH (12:00)
[2023-07-11] MEDS: HumaLOG 300 UNITS/3 ML VIAL SC PRN (12:24)
[2023-07-11] MEDS: Atorvastatin Calcium 40 MG TAB PO SCH (22:13)
[2023-07-11] MEDS: Insulin Glargine 30 UNITS/0.3 ML VIAL SC SCH (22:13)
[2023-07-11] MEDS: Latanoprost 0.005% Ophth Soln 2.5 ml Bottle EA EYE SCH (22:15)
[2023-07-12] MEDS: Acetaminophen 650 MG/20.3 ML UDCUP PER TUBE PRN ×2 (00:55→06:28)
[2023-07-12] MEDS: Furosemide 40 MG/4 ML VIAL SLOW IVP SCH (05:13)
[2023-07-12 07:25] VITALS: BMI 28.5
[2023-07-12 08:16] VITALS: BP 110/56; TEMP 99.8
[2023-07-12] MEDS: Metoprolol Tartrate 25 MG TAB PO SCH (10:26)
[2023-07-12] MEDS: Amiodarone 200 MG TAB PO SCH (10:26)
[2023-07-12] MEDS: Potassium Chloride 20 MEQ TAB PO SCH (10:26)
[2023-07-12] MEDS: Docusate Sodium 100 MG/10 ML UDCUP PO SCH (10:27)
[2023-07-12] MEDS: levETIRAcetam 500 MG/5 ML VIAL SLOW IVP SCH (10:27)
[2023-07-12] MEDS: HumaLOG 300 UNITS/3 ML VIAL SC SCH ×2 (10:27→10:53)
[2023-07-12] MEDS: Famotidine/PF 20 mg/2ml Vial SLOW IVP SCH (10:27)
[2023-07-12] MEDS: Polyethylene Glycol 3350 17 GM Packet PER TUBE SCH (10:28)
[2023-07-12] MEDS: LevoFLOXacin 750 mg/D5W 750 MG in Premix Bag 1 BAG IVPB SCH (10:28)
[2023-07-12] MEDS: DorzolamidE/Timolol 2%/0.5% Ophth Soln 10 ml Bottle EA EYE SCH (10:52)
[2023-07-12] MEDS: HumaLOG 300 UNITS/3 ML VIAL SC PRN (12:55)
== END 2023-07-12 15:25 | disposition hospice, inpatient (51) | DRG 23 ==
LOC: ERS 14:49 → SDC/OP 16:16 → CCU 17:05 → 2SE 07-08 16:13
PROVIDERS: ADMIT Internal Medicine; ATTEND Family Medicine
PROC: 0DH67UZ Insertion of Feeding Device into Stomach, Via Natural or Artificial Opening (ICD-10-PCS; principal; 2023-06-28)
PROC: 0BH17EZ Insertion of Endotracheal Airway into Trachea, Via Natural or Artificial Opening (ICD-10-PCS; 2023-06-28)
PROC: 4A133R1 Monitoring of Arterial Saturation, Peripheral, Percutaneous Approach (ICD-10-PCS; 2023-06-28)
PROC: 5A1955Z Respiratory Ventilation, Greater than 96 Consecutive Hours (ICD-10-PCS; 2023-06-28)
PROC: 3E03317 Introduction of Other Thrombolytic into Peripheral Vein, Percutaneous Approach (ICD-10-PCS; 2023-06-28)
PROC: 3E03317 Introduction of Other Thrombolytic into Peripheral Vein, Percutaneous Approach (ICD-10-PCS; 2023-06-28)
PROC: 03CG3ZZ Extirpation of Matter from Intracranial Artery, Percutaneous Approach (ICD-10-PCS; 2023-06-29)
PROC: B31R1ZZ Fluoroscopy of Intracranial Arteries using Low Osmolar Contrast (ICD-10-PCS; 2023-06-29)
PROC: 3E033XZ Introduction of Vasopressor into Peripheral Vein, Percutaneous Approach (ICD-10-PCS; 2023-06-29)
PROC: 4A00X4Z Measurement of Central Nervous Electrical Activity, External Approach (ICD-10-PCS; 2023-06-30)
PROC: 3E03329 Introduction of Other Anti-infective into Peripheral Vein, Percutaneous Approach (ICD-10-PCS; 2023-07-01)
PROC: 4A00X4Z Measurement of Central Nervous Electrical Activity, External Approach (ICD-10-PCS; 2023-07-04)
PROC: 0DH67UZ Insertion of Feeding Device into Stomach, Via Natural or Artificial Opening (ICD-10-PCS; 2023-07-07)
PROC: 3E0G76Z Introduction of Nutritional Substance into Upper GI, Via Natural or Artificial Opening (ICD-10-PCS; 2023-07-07)
DX: I63.511 Cerebral infarction due to unspecified occlusion or stenosis of right middle cerebral artery (principal); A41.9 Sepsis, unspecified organism; G93.41 Metabolic encephalopathy; I60.9 Nontraumatic subarachnoid hemorrhage, unspecified; G93.6 Cerebral edema; I50.33 Acute on chronic diastolic (congestive) heart failure; J15.211 Pneumonia due to Methicillin susceptible Staphylococcus aureus; J80 Acute respiratory distress syndrome; E87.3 Alkalosis; N39.0 Urinary tract infection, site not specified; G81.94 Hemiplegia, unspecified affecting left nondominant side; I48.92 Unspecified atrial flutter; Z51.5 Encounter for palliative care; Z66 Do not resuscitate; R29.717 NIHSS score 17; D53.9 Nutritional anemia, unspecified; I48.91 Unspecified atrial fibrillation; E87.6 Hypokalemia; E83.42 Hypomagnesemia; D69.6 Thrombocytopenia, unspecified; E83.39 Other disorders of phosphorus metabolism; I11.0 Hypertensive heart disease with heart failure; E11.65 Type 2 diabetes mellitus with hyperglycemia; E87.5 Hyperkalemia; Z88.2 Allergy status to sulfonamides; Z79.899 Other long term (current) drug therapy; Z79.4 Long term (current) use of insulin; R29.810 Facial weakness; R13.12 Dysphagia, oropharyngeal phase
CPT/HCPCS: 31500; 36415; 36416; 36600; 43762; 70450; 70496; 70498; 71045; 74018; 80048; 80053; 80061; 80202; 82607; 82805; 83036; 83605; 83735; 84100; 84145; 84484; 85025; 85027; 85049; 85300; 85362; 85379; 85384; 85610; 85730; 87040; 87070; 87077; 87086; 87186; 87205; 93005; 93010; 93306; 94002; 94003; 94640; 95711; 95819; 95957; 96374; 99292; C1769; C1887; C1894; J0282; J0360; J0692; J1642; J1644; J1815; J1940; J1953; J1956; J2001; J2060; J2272; J2370; J2543; J2704; J3101; J3370; J3370-JW; J3475; J3480; J3490; J7030; J7050; J7070; J7620; J7626; P9047; Q9967; S0028

== ENCOUNTER 2023-07-12 15:39 | Inpatient (IN) | payer OTHER ==
[2023-07-12] MEDS ORDERED: Ipratropium/Albuterol 3 ML NEB NEB PRN (15:57)
[2023-07-12] MEDS ORDERED: Bisacodyl 10 MG SUPP PR PRN (15:59)
[2023-07-12] MEDS ORDERED: GLYCOPYRROLATE/PF 0.2 MG/ML VIAL SLOW IVP PRN (15:59)
[2023-07-12] MEDS ORDERED: Ondansetron PF 4 MG/2 ML Vial IVP PRN (16:00)
[2023-07-12] MEDS ORDERED: Haloperidol Lactate 5 MG/ML VIAL SLOW IVP PRN (16:00)
[2023-07-12] MEDS: Morphine 2 MG/ML VIAL SLOW IVP PRN (16:32)
[2023-07-12] MEDS: levETIRAcetam 500 MG/5 ML VIAL SLOW IVP SCH (20:23)
[2023-07-13] MEDS: levETIRAcetam 500 MG/5 ML VIAL SLOW IVP SCH ×2 (09:21→20:56)
[2023-07-13] MEDS: Acetaminophen 650 MG Suppository PR PRN ×2 (09:23→17:31)
[2023-07-13] MEDS: Lorazepam 2 MG/ML VIAL SLOW IVP PRN (11:26)
[2023-07-13] MEDS: Morphine 2 MG/ML VIAL SLOW IVP PRN ×2 (11:27→15:19)
[2023-07-13] MEDS ORDERED: Scopolamine 1.5 mg/72 hour Patch TOP SCH ×2 (14:30→15:30)
[2023-07-14] MEDS: levETIRAcetam 500 MG/5 ML VIAL SLOW IVP SCH ×2 (08:15→21:28)
[2023-07-14] MEDS ORDERED: Dextrose 5%-Lactated Ringers 1,000 ML IV SCH (11:15)
[2023-07-14] MEDS: Morphine 2 MG/ML VIAL SLOW IVP PRN ×2 (11:50→21:35)
[2023-07-14 21:11] VITALS: BP 111/72; TEMP 98.3
[2023-07-14] MEDS: Lorazepam 2 MG/ML VIAL SLOW IVP PRN (21:35)
[2023-07-15] MEDS: Morphine 2 MG/ML VIAL SLOW IVP PRN ×2 (01:10→05:49)
== END 2023-07-15 07:55 | disposition expired | DRG 951 ==
LOC: 2SE 15:39 → T4-A 07-13 16:07
PROVIDERS: ADMIT Family Medicine; ATTEND Family Medicine
DX: Z51.5 Encounter for palliative care (principal); J15.211 Pneumonia due to Methicillin susceptible Staphylococcus aureus; I63.9 Cerebral infarction, unspecified; I61.9 Nontraumatic intracerebral hemorrhage, unspecified; I48.91 Unspecified atrial fibrillation; D64.9 Anemia, unspecified; E11.9 Type 2 diabetes mellitus without complications; I10 Essential (primary) hypertension; Z88.2 Allergy status to sulfonamides
CPT/HCPCS: J1953; J2060; J2272